=== PATIENT | male | born 1985 | race African-American/Black ===

== ENCOUNTER 2019-05-18 23:09 | Emergency (ER) | payer MEDICAID ==
[~2019-05-18] VITALS: Ht 188 cm; Wt 95.0 kg
[2019-05-19 00:50] VITALS: BP 141/88
== END 2019-05-19 00:57 | disposition home or self-care (01) ==
LOC: ER 23:09
DX: T50.7X1A Poisoning by analeptics and opioid receptor antagonists, accidental (unintentional), initial encounter (principal); Y92.018 Other place in single-family (private) house as the place of occurrence of the external cause
CPT/HCPCS: 93005; 99283; J7042; Z7610